=== PATIENT | female | born 1955 | race Caucasian/White ===

== ENCOUNTER → 2020-11-23 | Outpatient (CLI) | payer OTHER | LOC: EXRD 08:49 | DX: N17.9 Acute kidney failure, unspecified (principal); N13.2 Hydronephrosis with renal and ureteral calculous obstruction | CPT/HCPCS: 76775 ==

== ENCOUNTER 2021-03-28 03:15 | Inpatient (IN) | payer OTHER ==
[~2021-03-28] VITALS: Ht 170.2 cm; Wt 77.1 kg
[2021-03-28 06:58] LABS: HEMOGLOBIN 10.4 gm/dl (12.3-15.3); RED BLOOD COUNT 3.53 M/UL (4.00-5.10); WHITE BLOOD COUNT 12.4 K/UL (4.5-11.0)
[2021-03-28] MEDS ORDERED: BUSPIRONE HCL10 MG PO (14:07)
[2021-03-28] MEDS ORDERED: ASPIRIN EC81 MG PO (14:07)
[2021-03-28] MEDS ORDERED: VITAMIN D325 MCG PO (14:08)
[2021-03-28] MEDS ORDERED: ESGIC 50-325-41 EACH PO (14:08)
[2021-03-28] MEDS ORDERED: FERROUS SULFAT325 M2 PO (14:09)
[2021-03-28] MEDS ORDERED: VOLTAREN ARTHRI20 GM TP (14:09)
[2021-03-28] MEDS ORDERED: DOCUSATE SODIU100 MG PO (14:09)
[2021-03-28] MEDS ORDERED: GABAPENTIN400 MG PO (14:10)
[2021-03-28] MEDS ORDERED: FOLIC ACID1 MG PO (14:10)
[2021-03-28] MEDS ORDERED: HYDROCODON-ACE1 EAC4 PO (14:13)
[2021-03-28] MEDS ORDERED: LANTUS SOL100 UNIT/1 SQ (14:14)
[2021-03-28] MEDS ORDERED: ROPINIROLE HCL1 MG PO (14:14)
[2021-03-28] MEDS ORDERED: SULFAMETHOXAZO1 EACH PO (14:15)
[2021-03-28] MEDS ORDERED: PROTONIX 40 MG40 M1 PO (14:15)
[2021-03-28] MEDS ORDERED: JARDIANCE25 MG PO (14:15)
[2021-03-28] MEDS ORDERED: LEVOTHYROXINE50 MCG PO (14:15)
[2021-03-28] MEDS ORDERED: HUMALOG100 UNIT/3 SQ (14:18)
[2021-03-29 06:49] LABS: HEMOGLOBIN 9.7 gm/dl (12.3-15.3); RED BLOOD COUNT 3.3 M/UL (4.00-5.10)
[2021-03-29 06:52] LABS: WHITE BLOOD COUNT 8.7 K/UL (4.5-11.0)
[2021-03-29] MEDS ORDERED: KEFLEX CAP 250250 MG PO (10:00)
== END 2021-03-29 12:02 | disposition home or self-care (01) | DRG 683 ==
LOC: ER1 03:15 → CDU 10:19 → MED SURG 4 10:19
PROVIDERS: Nurse Practitioner; Physician Assistant Medical; ADMIT Internal Medicine
DX: N17.9 Acute kidney failure, unspecified (principal); N30.00 Acute cystitis without hematuria; Z20.822 Contact with and (suspected) exposure to COVID-19; I12.9 Hypertensive chronic kidney disease with stage 1 through stage 4 chronic kidney disease, or unspecified chronic kidney disease; N18.9 Chronic kidney disease, unspecified; N13.6 Pyonephrosis; E11.22 Type 2 diabetes mellitus with diabetic chronic kidney disease; E03.9 Hypothyroidism, unspecified; E78.5 Hyperlipidemia, unspecified; E86.0 Dehydration; D63.1 Anemia in chronic kidney disease; D50.9 Iron deficiency anemia, unspecified; T36.8X5A Adverse effect of other systemic antibiotics, initial encounter; K21.9 Gastro-esophageal reflux disease without esophagitis; I25.10 Atherosclerotic heart disease of native coronary artery without angina pectoris; Z95.1 Presence of aortocoronary bypass graft; Z79.82 Long term (current) use of aspirin; Z98.51 Tubal ligation status; Z83.3 Family history of diabetes mellitus; Z82.49 Family history of ischemic heart disease and other diseases of the circulatory system; Z80.9 Family history of malignant neoplasm, unspecified
CPT/HCPCS: 36415; 80048; 81001; 82962; 83605; 83735; 85025; 85027; 87040; 87086; 96374; 96375; 99285; J0696; J1885; U0002